=== PATIENT | female | born 2005 | race Caucasian/White ===

== ENCOUNTER 2025-10-07 08:13 | Observation (INO) | payer OTHER, SELFPAY ==
[2025-10-07] VITALS (8 sets, daily range): BP systolic 84–116; BP diastolic 47–78; PULSE 52–76; RESP 16–27; TEMP 36.4–37; O2SAT 96–100; BMI 26.2
--- NOTE | 2025-10-07 08:26 | ED_ITS ---
HPI - General Adult General Chief complaint: Skin/Abscess/Foreign Body Stated complaint: Cyst on left hip 7 days ago Time Seen by Provider: 10/07/25 08:23 History of Present Illness HPI narrative: 20-year-old woman with minimal medical history presents complaining of a labial/perirectal cyst. Initially noted pain increasing number for. Was seen in an urgent care clinic on October 02 given a small prescription for oxycodone and started on doxycycline. She is now visiting her family in [place] and notes that the pain continues to increase comes in for additional evaluation. No fevers or chills, no expanding redness or cellulitis Related Data Home Medications ?Medication ?Instructions ?Recorded ?Confirmed CA PANTOTHENATE/FOLIC ACID/VIT 1 tab PO QDAY ##0 07/20 (MULTIVITAMIN) Previous Rx's ?Medication ?Instructions ?Recorded lansoprazole 30 mg delayed 30 mg PO QDAY ##30 02/11/13 release,disintegrating tablet (Prevacid SoluTab) clindamycin HCl 150 mg capsule 150 mg PO TID #21 caps 10/07/25 oxycodone 5 mg tablet 5 mg PO Q6H PRN pain #10 tab s 10/07/25 Allergies Allergy/AdvReac Type Severity Reaction Status Date / Time ciprofloxacin (From Cipro) Allergy Severe Anaphylaxis Verified 10/07/25 08:23 hydrocodone AdvReac Verified 10/07/25 08:23 Review of Systems Review of Systems Narrative: Pertinent positive and negative findings as per HPI Exam Initial Vital Signs Initial Vital Signs: Vital Signs Temperature 97.5 F L 10/07/25 08:23 Pulse Rate 60 10/07/25 08:23 Respiratory Rate 16 10/07/25 08:23 Blood Pressure 116/61 10/07/25 08:23 Pulse Oximetry 99 10/07/25 08:23 Oxygen Delivery Method Room Air 10/07/25 08:23 General: Healthy appearing, in no acute distress. Able to give a complete and coherent history. Well-nourished well-developed Respiratory: Lungs are clear to auscultation, no wheezing no rales no rhonchi. Full and symmetrical air movement Cardiac: Regular rate and rhythm no murmurs no bruits Abdomen: Soft, nontender, no rebound or guarding, no flank pain Perineum: Increasing tenderness in the buttock/perianal area heading toward the perineum but not necessarily including the perineum and clearly not involving labia or Bartholin duct cyst area. There was no obvious skin breakdown, rash or erythema. It feels like there may be a deeper area of fluctuance approximately 2 x 2 cm. She is quite tender in that area Skin: Warm and dry, no rashes Neurologic: Grossly neurologically intact with no obvious asymmetries or abnormalities Extremities: No trauma, well perfused Psych: Cooperative, appropriate insight and affect Course Orders Ordered: ED Orders 10/07/25 12:38 EKG-12 Lead Stat Discontinued Medications Benzocaine (Benzocaine/Menthol 1 Yohana Pkt) 1 each PO PRN PRN PRN Reason: Sore Throat Hydromorphone HCl (Hydromorphone Hcl 0.5 Mg/0.5 Ml Syringe) 0.5 mg IV NOW ONE Stop: 10/07/25 10:13 Last Admin: 10/07/25 10:39 Dose: 0.5 mg Documented By: MACHO Hydromorphone HCl (Hydromorphone Hcl 0.5 Mg/0.5 Ml Syringe) 0.5 mg IV Q2H PRN PRN Reason: Pain, Severe (7-10) Last Admin: 10/07/25 13:06 Dose: 0.5 mg Documented By: LUIS Hydromorphone HCl (Hydromorphone 1 Mg/Ml Syringe) 0 mg IV Q5MIN PRN PRN Reason: Pain, Mild (1-3) Hydromorphone HCl (Hydromorphone 1 Mg/Ml Syringe) 0 mg IV Q5MIN PRN PRN Reason: Pain, Moderate (4-6) Hydromorphone HCl (Hydromorphone 1 Mg/Ml Syringe) 0 mg IV Q5MIN PRN PRN Reason: Pain, Severe (7-10) Sodium Chloride (Normal Saline 0.9%) 1,000 mls @ 125 mls/hr IV CONT PEMA Last Infusion: 10/07/25 13:34 Dose: 125 mls/hr Documented By: Admin: 10/07/25 13:07 Dose: 125 mls/hr Documented By: LUIS Piperacillin Sod/Tazobactam (Sod 4.5 gm/ Sodium Chloride) 100 mls @ 200 mls/hr IV NOW ONE Stop: 10/07/25 12:49 Last Infusion: 10/07/25 13:34 Dose: 200 mls/hr Documented By: Admin: 10/07/25 13:06 Dose: 200 mls/hr Documented By: LUIS Vancomycin HCl/Dextrose (Vancomycin) 1,500 mg in 300 mls @ 200 mls/hr IV NOW ONE Stop: 10/07/25 14:44 Lactated Ringer's (Lactated Ringers) 1,000 mls @ 120 mls/hr IV CONT PEMA Metoclopramide HCl (Metoclopramide 10 Mg/2 Ml Inj) 10 mg IV NOW PRN PRN Reason: Nausea And Vomiting Ondansetron HCl (Ondansetron 4 Mg/2 Ml Inj) 4 mg IV Q4HR PRN PRN Reason: Nausea And Vomiting Ondansetron HCl (Ondansetron 4 Mg/2 Ml Inj) 4 mg IV NOW PRN PRN Reason: Nausea And Vomiting Last Admin: 10/07/25 15:11 Dose: 4 mg Documented By: CHRISTIAN Oxycodone HCl (Oxycodone Ir 5 Mg Tablet) 5 mg PO PACUNOW PRN PRN Reason: Mild or moderate pain Vancomycin HCl (Vancomycin Per Pharmacy) 1 request MISC NOW ONE Stop: 10/07/25 12:50 Vital Signs Vital signs: Vital Signs - 8 hr 10/07/25 13:00 Temperature 98.6 F Pulse Rate 52 L Respiratory Rate 18 Blood Pressure 104/56 L Pulse Oximetry 99 Oxygen Delivery Method Room Air Medical Decision Making Lab Data 10/07/25 10:20 10/07/25 10:20 Labs: Lab Results 10/07/25 10/07/25 Range/Units 10:20 10:22 WBC 11.2 H (4.5-11.0) X10^3/uL RBC 4.57 (4.0-5.2) X10^6/uL Hgb 14.3 (12.0-16.0) g/dL Hct 42.1 (36-46) % MCV 92.1 (80-100) fL MCH 31.4 (26-34) PG MCHC 34.1 (30-36) % RDW 12.9 (11.6-14.8) % Plt Count 330 (150-400) X10^3/uL Neut % (Auto) 77.4 H (50-75) % Lymph % (Auto) 16.6 L (25-40) % [place] % (Auto) 5.1 (3-14) % Eos % (Auto) 0.3 L (2-4) % Baso % (Auto) 0.6 (0-2) % Neut # (Auto) 8700 H (0096-2572) /uL Lymph # (Auto) 1900 (3175-0357) /uL [place] # (Auto) 600 (0-900) /uL Eos # (Auto) 0 (0-450) /uL Baso # (Auto) 100 (0-100) /uL Sodium 140 (137-145) mmol/L Potassium 3.8 (3.4-5.1) mmol/L Chloride 106 (98-107) mmol/L Carbon Dioxide 20 L (22-32) mmol/L BUN 11 (7-17) mg/dL Creatinine 0.72 (0.52-1.04) mg/dL Estimated GFR > 60 (>60) mL/min BUN/Creatinine Ratio 15.3 (6-22) Glucose 81 (70-99) mg/dL Calcium 9.2 (8.4-10.2) mg/dL Total Bilirubin 0.8 (0.2-1.3) mg/dL AST 24 (14-36) IU/L ALT 16 (<35) IU/L Alkaline Phosphatase 70 (38-126) U/L Total Protein 8.3 H (6.3-8.2) g/dL Albumin 4.8 (3.5-5.0) g/dL Globulin 3.5 (1.7-4.1) g/dL Albumin/Globulin Ratio 1.4 (1.0-2.8) Urine RBC 10-30/hpf H (0-5/HPF) Urine WBC 5-10/hpf H (0-5/HPF) Ur Squamous Epith Cells 5-10 /hpf H (0-5/HPF) Urine Bacteria Moderate (10-30) H (None) Vol Urine Centrifuged 10ml (spun) Point of Care Testing Test Results Negative Urine Dip Bedside Urine Glucose 100 mg/dl Bedside Urine Bilirubin - Negative Bedside Urine Ketone +++ 80 Urine Specific [place] 1.030 Bedside Urine Occult Blood +++ Bedside Urine pH 6.0 Bedside Urine Protein +/- 15 Bedside Urine Urobilinogen - Negative Bedside Urine Nitrite - Negative Bedside Urine Leukocytes +/- 15 Esterase Point of care testing: Point of Care Testing Test Results Negative Urine Dip Bedside Urine Glucose 100 mg/dl Bedside Urine Bilirubin - Negative Bedside Urine Ketone +++ 80 Urine Specific [place] 1.030 Bedside Urine Occult Blood +++ Bedside Urine pH 6.0 Bedside Urine Protein +/- 15 Bedside Urine Urobilinogen - Negative Bedside Urine Nitrite - Negative Bedside Urine Leukocytes +/- [address] scan - abdomen/pelvis: Radiologist's Impression: PROCEDURE: CT ABDOMEN PELVIS W CON INDICATIONS: Left sided perirectal/perineal pain TECHNIQUE: After the administration of intravenous contrast, axial sections acquired from the lung bases to the pubic symphysis. Coronal and sagittal reformats were performed. For radiation dose reduction, the following was used: automated exposure control, adjustment of mA and/or kV according to patient size. COMPARISON: None. FINDINGS: Image quality: Diagnostic. Lower Chest: No significant findings. ABDOMEN: Liver: No solid mass. Gallbladder: No radiopaque gallstones or wall thickening. Biliary ducts: No biliary dilation. Pancreas: No ductal dilation. Spleen: Size is within normal limits. Adrenal Glands: No adrenal nodules. Kidneys and Ureters: No hydronephrosis. No solid mass. No complex renal cystic lesion which requires follow up. Stomach and Bowel: Normal colonic caliber, without significant wall thickening. Peritoneum: Mild pelvic fluid may be physiologic. No free air. Ventral Wall: No significant ventral hernia. Abdominal Nodes: No retroperitoneal or mesenteric adenopathy by size criteria. Vessels: Aorta and inferior vena cava are normal in size. PELVIS: Pelvic Organs: Unremarkable. Bladder: No bladder wall thickening, accounting for underdistention. Pelvic Nodes: No enlarged lymph nodes. Miscellaneous: No inguinal hernias are seen. There is a small high density focus in the left paramedian perianal subcutaneous tissues with a Hounsfield measurement of 79 which measures approximately 2.7 x 1.9 x 2.4 cm. Bones: No aggressive osseous abnormality. IMPRESSION: 1. Small area of hemorrhage versus enhancing phlegmon in the subcutaneous tissues of the medial left buttock near the anus. Dictated by: Julio C Bhardwaj M.D. on 10/07/2025 at 10:56 MDM Narrative Medical decision making narrative: CC: Concern for perineal abscess Data collected from: patient Medical records reviewed: She has been on doxycycline for the last 5 days with no improvement Differential considered: Bartholin duct cyst, perirectal abscess, cellulitis, Exam documented above, pertinent findings include: Tenderness in the left side of the perineum but not including the perineum. No obvious swelling or redness. This is not a Bartholin duct cyst Lab Test results independently reviewed as above. Pertinent findings: CBC shows a white count of 11.2 with normal left shift no anemia Chemistries are entirely reassuring Patient is currently menstruating, urine appears to be contaminated Imaging studies independently reviewed: IMPRESSION: 1. Small area of hemorrhage versus enhancing phlegmon in the subcutaneous tissues of the medial left buttock near the anus. Consultations: Dr Trevizo Treatments: IV antibiotics, IV Dilaudid Discussion: 20-year-old woman with perineal pain that appears to be a developing abscess possible perirectal abscess. She has been on 5 days of doxycycline with symptoms worsening. General surgery was consulted and patient will need to have this drained. It is quite deep and I do not believe treatment in the emergency department is going to be appropriate. She will be admitted to the general surgical service. Will begin antibiotics with Zosyn and vancomycin until cultures are obtained Discharge Plan Departure Patient Disposition: Admitted as Observation Clinical Impression: Abscess, perirectal Admit Date/Time: 10/07/25 13:27 Admit Provider: Naheed Trevizo
--- NOTE | 2025-10-07 10:11 | DI.CT.S_ITS ---
PROCEDURE: CT ABDOMEN PELVIS W CON INDICATIONS: Left sided perirectal/perineal pain TECHNIQUE: After the administration of intravenous contrast, axial sections acquired from the lung bases to the pubic symphysis. Coronal and sagittal reformats were performed. For radiation dose reduction, the following was used: automated exposure control, adjustment of mA and/or kV according to patient size. COMPARISON: None. FINDINGS: Image quality: Diagnostic. Lower Chest: No significant findings. ABDOMEN: Liver: No solid mass. Gallbladder: No radiopaque gallstones or wall thickening. Biliary ducts: No biliary dilation. Pancreas: No ductal dilation. Spleen: Size is within normal limits. Adrenal Glands: No adrenal nodules. Kidneys and Ureters: No hydronephrosis. No solid mass. No complex renal cystic lesion which requires follow up. Stomach and Bowel: Normal colonic caliber, without significant wall thickening. Peritoneum: Mild pelvic fluid may be physiologic. No free air. Ventral Wall: No significant ventral hernia. Abdominal Nodes: No retroperitoneal or mesenteric adenopathy by size criteria. Vessels: Aorta and inferior vena cava are normal in size. PELVIS: Pelvic Organs: Unremarkable. Bladder: No bladder wall thickening, accounting for underdistention. Pelvic Nodes: No enlarged lymph nodes. Miscellaneous: No inguinal hernias are seen. There is a small high density focus in the left paramedian perianal subcutaneous tissues with a Hounsfield measurement of 79 which measures approximately 2.7 x 1.9 x 2.4 cm. Bones: No aggressive osseous abnormality. IMPRESSION: 1. Small area of hemorrhage versus enhancing phlegmon in the subcutaneous tissues of the medial left buttock near the anus. Dictated by: Julio C Bhardwaj M.D. on 10/07/2025 at 10:56 Approved by: Julio C Bhardwaj M.D. on 10/07/2025 at 11:00
[2025-10-07 10:49] LABS: Add Manual Diff / Slide Review NO; Hematocrit 42.1 % (36-46); Hemoglobin 14.3 g/dL (12.0-16.0); Lymphocytes Absolute Auto 1900 /uL (1100-4500); Mean Corpuscular HGB Conc 34.1 % (30-36); Mean Corpuscular Hemoglobin 31.4 PG (26-34); Mean Corpuscular Volume 92.1 fL (80-100); Platelet Count 330 X10^3/uL (150-400)
[2025-10-07 11:06] LABS: Alanine Aminotransferase 16 IU/L (<35); Albumin 4.8 g/dL (3.5-5.0); Albumin Globulin Ratio 1.4 (1.0-2.8); Alkaline Phosphatase 70 U/L (38-126); Blood Urea Nitrogen 11 mg/dL (7-17); Calcium 9.2 mg/dL (8.4-10.2); Carbon Dioxide 20 mmol/L (22-32); Chloride 106 mmol/L (98-107); Estimated Glomerular Filt Rate > 60 mL/min (>60); Globulin 3.5 g/dL (1.7-4.1); Glucose 81 mg/dL (70-99); HEMOLYSIS < 15 (0-50); Potassium 3.8 mmol/L (3.4-5.1); Sodium 140 mmol/L (137-145); Total Protein 8.3 g/dL (6.3-8.2)
--- NOTE | 2025-10-07 12:32 | PM.HP.IH.1 ---
History of Present Illness History of Present Illness Date Patient Seen: 10/07/25 Time Patient Seen: 12:33 Chief complaint: Cyst on left hip 7 days ago Narrative: Called per Dr. Soto to see this 20-year-old female with a left perirectal abscess. Apparently the patient has had numerous perineal and labial abscesses, but this is the 1st time she has had a posterior abscess. She notes it has been an issue for at least 5 days and she is currently taking doxycycline to no advantage. CT reveals a significant abscess left of the anus measuring approximately 3 x 3 x 3 cm. Patient is exquisitely tender. She has remained afebrile. She is without additional complaints. She does note a history of SVT however, she states that since her 100 lb weight loss, it has no longer been an issue and she is no longer followed by cardiology. Meds Home Medications and Allergies Home Medications ?Medication ?Instructions ?Recorded ?Confirmed ?Type CA PANTOTHENATE/FOLIC ACID/VIT 1 tab PO QDAY ##0 07/20/11 History (MULTIVITAMIN) lansoprazole 30 mg delayed 30 mg PO QDAY ##30 02/11/13 Rx release,disintegrating tablet (Prevacid SoluTab) Allergies Allergy/AdvReac Type Severity Reaction Status Date / Time ciprofloxacin (From Cipro) Allergy Severe Anaphylaxis Verified 10/07/25 08:23 hydrocodone AdvReac Verified 10/07/25 08:23 Review of Systems Review of Systems ROS: Yes All systems reviewed with the patient and are negative except as otherwise documented Exam Vital Signs (past 8 hours): - 10/07/25 08:23 Temperature 97.5 F L Pulse Rate 60 Respiratory Rate 16 Blood Pressure 116/61 Pulse Oximetry 99 Oxygen Delivery Method Room Air Oxygen Delivery Method Room Air Narrative Exam Narrative: Afebrile; vital signs stable Atraumatic and normocephalic Good dentition, trachea midline Regular rate and rhythm without Respirations clear to auscultation bilaterally no wheezes rales or rhonchi Abdomen scaphoid, nontender, nondistended Perianal area with left deep, subcutaneous abscess adjacent to the perianal area; exquisitely tender; patient intolerant rectal exam Moves all extremities x4 Objective Labs 10/07/25 10:20 10/07/25 10:20 Labs: Laboratory Results - last 24 hr 10/07/25 10/07/25 10:20 10:22 WBC 11.2 H RBC 4.57 Hgb 14.3 Hct 42.1 MCV 92.1 MCH 31.4 MCHC 34.1 RDW 12.9 Plt Count 330 Neut % (Auto) 77.4 H Lymph % (Auto) 16.6 L [place] % (Auto) 5.1 Eos % (Auto) 0.3 L Baso % (Auto) 0.6 Neut # (Auto) 8700 H Lymph # (Auto) 1900 [place] # (Auto) 600 Eos # (Auto) 0 Baso # (Auto) 100 Sodium 140 Potassium 3.8 Chloride 106 Carbon Dioxide 20 L BUN 11 Creatinine 0.72 Estimated GFR > 60 BUN/Creatinine Ratio 15.3 Glucose 81 Calcium 9.2 Total Bilirubin 0.8 AST 24 ALT 16 Alkaline Phosphatase 70 Total Protein 8.3 H Albumin 4.8 Globulin 3.5 Albumin/Globulin Ratio 1.4 Urine RBC 10-30/hpf H Urine WBC 5-10/hpf H Ur Squamous Epith Cells 5-10 /hpf H Urine Bacteria Moderate (10-30) H Vol Urine Centrifuged 10ml (spun) Assessment & Plan Assessment & Plan narrative: 20-year-old female with large, perirectal abscess requiring operative intervention -patient currently NPO; we will initiate antimicrobials in the ER and admit -we will proceed to OR for I and D and culture -appreciate Dr. Geronimo for the opportunity to participate in this patient's care Time-Based Coding :: [TOTAL MINUTES] spent with patient and on the chart (including review of chart, obtaining history, exam, reviewing outside data, placing orders, documenting exam and treatment plan, and counseling patient) on [DATE]. PROFEE Chief Service Observer Document charge(s): No Charge Codes Initial inpatient/observation care: [id number]
--- NOTE | 2025-10-07 12:38 | EKG_ITS ---
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
[2025-10-07] MEDS: PIPERACILLIN/TAZO 4.5 GM in SODIUM CHLORIDE 0.9% 100 ML IV (13:06)
[2025-10-07] MEDS: SODIUM CHLORIDE 0.9% 1,000 ML 125 ML IV (13:07)
--- NOTE | 2025-10-07 13:33 | PC.NURSE ---
Pt being taken to the OR. report given to LAZARUS Raya. Pt transported from 1 with abx infusing
--- NOTE | 2025-10-07 14:27 | SUR.OPER ---
Lithotomy on padded OR bed, head on pillow, arms secured on padded arm boards at <90 degrees abduction. Legs secured in padded yellow fins stirrups.
--- NOTE | 2025-10-07 14:39 | PM.OP.1 ---
Operative Date/Time/Diagnoses Date of procedure: 10/07/25 Time of procedure: 14:39 Pre-op diagnosis: Left perirectal abscess Post-op diagnosis: same Procedure & Clinicians Procedure: Incision and drainage left perirectal abscess Same procedure(s) as scheduled: Yes Indications: Left perirectal abscess Surgeon: Naheed Trevizo Assisted?: No Anesthesia Type: General Operative Notes Findings: 4 x 4 cm deep left perirectal abscess; cultures for aerobic and anaerobic obtain Closure Type: not applicable Applied: none Estimated Blood Loss (mL): 25 Blood products transfused: none Procedure in detail: Following informed consent, the patient was taken to the operating room placed in supine position. An LMA was then placed. The patient was then placed in dorsal lithotomy and the perianal and perineal area prepped and draped in the standard fashion. Sharp dissection with a 11. Blade was used to create an incision over the area of greatest fluctuance. Purulent material was noted. Cultures were obtained and submitted for aerobic and anaerobic evaluation. Using a small hemostat the area was carefully explored. It was then irrigated. A small counter incision was made and a vessel loop passed through both incisions and tied off with silk suture in order to stent the wound open. The wound was then packed with 25 cm of half-inch Nu gauze saturated with Betadine and peroxide. The area was then infiltrated with 20 cc of 0.5% Marcaine with epinephrine. Sponge and needle counts were correct. A digital rectal exam was then performed. There did not appear to be any involvement along the left anus or rectal vault. The patient tolerated the procedure well. She was returned to the supine position extubated and a dressing was applied. She was taken to the recovery area in stable condition. Complications: none Post-operative Condition: stable Disposition: PACU Plan for aftercare: DC home; please see discharge detail
[2025-10-07] MEDS: ONDANSETRON 4 MG/2 ML INJ IV (15:11)
--- NOTE | 2025-10-08 08:03 | P.PN_ITS ---
Exam Vital Signs (past 8 hours): Oxygen Delivery Method Room Air Objective Labs 10/07/25 10:20 10/07/25 10:20 Labs: Laboratory Results - last 24 hr 10/07/25 10/07/25 10:20 10:22 WBC 11.2 H RBC 4.57 Hgb 14.3 Hct 42.1 MCV 92.1 MCH 31.4 MCHC 34.1 RDW 12.9 Plt Count 330 Neut % (Auto) 77.4 H Lymph % (Auto) 16.6 L [place] % (Auto) 5.1 Eos % (Auto) 0.3 L Baso % (Auto) 0.6 Neut # (Auto) 8700 H Lymph # (Auto) 1900 [place] # (Auto) 600 Eos # (Auto) 0 Baso # (Auto) 100 Sodium 140 Potassium 3.8 Chloride 106 Carbon Dioxide 20 L BUN 11 Creatinine 0.72 Estimated GFR > 60 BUN/Creatinine Ratio 15.3 Glucose 81 Calcium 9.2 Total Bilirubin 0.8 AST 24 ALT 16 Alkaline Phosphatase 70 Total Protein 8.3 H Albumin 4.8 Globulin 3.5 Albumin/Globulin Ratio 1.4 Urine RBC 10-30/hpf H Urine WBC 5-10/hpf H Ur Squamous Epith Cells 5-10 /hpf H Urine Bacteria Moderate (10-30) H Vol Urine Centrifuged 10ml (spun) Assessment & Plan Time-Based Coding :: [TOTAL MINUTES] spent with patient and on the chart (including review of chart, obtaining history, exam, reviewing outside data, placing orders, documenting exam and treatment plan, and counseling patient) on [DATE].
== END 2025-10-07 15:47 | disposition home or self-care (01) ==
LOC: ED 12:26 → AC 13:29
PROVIDERS: Admitting Provider Surgery Surgical Critical Care; Emergency Provider Emergency Medicine; Referring Provider Emergency Medicine; Visit Provider Surgery Surgical Critical Care
PROC: (CPT 46040; principal; 2025-10-07 14:00)
DX: K61.1 Rectal abscess (principal)
CPT/HCPCS: 46040; 74177; 80053; 81003; 81015; 81025; 85025; 87070; 87075; 87086; 87205; 93005; 96365; 96375; 96376; 99284; G0378; J1100; J1171; J1885; J2250; J2405; J2543; J2704; J3010; J7030; J7050

== ENCOUNTER 2025-10-10 01:31 | Emergency (ER) | payer OTHER, SELFPAY ==
[2025-10-10 01:46] VITALS: BP 111/68; PULSE 84; RESP 16; TEMP 37.2; O2SAT 98; BMI 26.2
--- NOTE | 2025-10-10 02:11 | ED_ITS ---
HPI - Nausea/Vomiting/Diarrhea General Chief complaint: Nausea/Vomiting/Diarrhea Stated complaint: Post op pain, N, V, fever Time Seen by Provider: 10/10/25 01:59 Source: patient Mode of arrival: Ambulatory History of Present Illness HPI Narrative: 20-year-old female had perirectal abscess initially treated with oral doxycycline that worsened, had surgical operating room drainage of perirectal abscess by surgeon Dr. Trevizo 3 days ago, discharged on clindamycin antibiotic, with oxycodone pain medication and Zofran ODT for control of nausea. Having nausea and vomiting, unable to keep pain medications down, increasing pain. Related Data Home Medications ?Medication ?Instructions ?Recorded ?Confirmed CA PANTOTHENATE/FOLIC ACID/VIT 1 tab PO QDAY ##0 07/20 (MULTIVITAMIN) Previous Rx's ?Medication ?Instructions ?Recorded lansoprazole 30 mg delayed 30 mg PO QDAY ##30 02/11/13 release,disintegrating tablet (Prevacid SoluTab) clindamycin HCl 150 mg capsule 150 mg PO TID #21 caps 10/07/25 oxycodone 5 mg tablet 5 mg PO Q6H PRN pain #10 tab s 10/07/25 metoclopramide HCl 10 mg tablet 10 mg PO Q6H PRN nause a and 10/10/25 (Reglan) vomiting #14 tabs Allergies Allergy/AdvReac Type Severity Reaction Status Date / Time ciprofloxacin (From Cipro) Allergy Severe Anaphylaxis Verified 10/07/25 08:23 hydrocodone AdvReac Verified 10/07/25 08:23 Patient History Social History Smoking Status: Current every day smoker Smoking Status: Current every day smoker Exam Narrative Exam Narrative: GENERAL: Well-developed patient, in mild distress. HEAD: Atraumatic. Normocephalic. EYES: White sclerae, conjugate gaze ENT: No obvious craniofacial trauma swelling, no redness NECK: Trachea midline. Moves neck well. CARDIOVASCULAR: Regular rate and rhythm without murmurs, gallops, or rubs. RESPIRATORY: Clear to auscultation. Breath sounds equal bilaterally. No wheezes, rales, or rhonchi. GASTROINTESTINAL: Abdomen soft, non-tender, nondistended. Perineal/rectal external exam: Tubing sutures intact, packing has been removed, no gross asymmetry, no significant swelling. EXTREMITIES: No edema or joint tenderness. BACK: Nontender without deformity or crepitance. No flank tenderness NEURO: AOx3. Motor functions grossly nonfocal. SKIN: No rash or erythema of visible areas Initial Vital Signs Initial Vital Signs: Vital Signs Temperature 99.0 F 10/10/25 01:46 Pulse Rate 84 10/10/25 01:46 Respiratory Rate 16 10/10/25 01:46 Blood Pressure 111/68 10/10/25 01:46 Pulse Oximetry 98 10/10/25 01:46 Oxygen Delivery Method Room Air 10/10/25 01:46 Course Orders Ordered: ED Orders 10/10/25 02:40 CBC Auto Diff [Complete Blood Count AUTO DIFF] Stat CMP [Comprehensive Metabolic Panel] Stat Lactate (Lactic Acid) Stat Urinalysis and Microscopic Stat Discontinued Medications Diphenhydramine HCl (Diphenhydramine 50 Mg/Ml Vial) 25 mg IV NOW ONE Stop: 10/10/25 02:17 Last Admin: 10/10/25 02:34 Dose: 25 mg Documented By: RODNEY Hydromorphone HCl (Hydromorphone Hcl 0.5 Mg/0.5 Ml Syringe) 0.5 mg IV NOW ONE Stop: 10/10/25 02:18 Last Admin: 10/10/25 02:35 Dose: 0.5 mg Documented By: RODNEY Sodium Chloride (Normal Saline 0.9%) 1,000 mls @ 1,000 mls/hr IV BOLUS ONE Stop: 10/10/25 03:15 Last Infusion: 10/10/25 03:15 Dose: Infused Documented By: Admin: 10/10/25 02:33 Dose: 1,000 mls/hr Documented By: RODNEY Ketorolac Tromethamine (Ketorolac 30 Mg/Ml Vial) 15 mg IV NOW ONE Stop: 10/10/25 03:00 Last Admin: 10/10/25 03:16 Dose: 15 mg Documented By: RODNEY Metoclopramide HCl (Metoclopramide 10 Mg/2 Ml Inj) 10 mg IV NOW ONE Stop: 10/10/25 02:17 Last Admin: 10/10/25 02:36 Dose: 10 mg Documented By: RODNEY Vital Signs Vital signs: Vital Signs - 8 hr 10/10/25 01:46 10/10/25 03:25 10/10/25 03:26 Temperature 99.0 F Pulse Rate 84 57 L Respiratory Rate 16 Blood Pressure 111/68 105/57 L Pulse Oximetry 98 97 Oxygen Delivery Method Room Air 10/10/25 03:26 Temperature Pulse Rate 61 Respiratory Rate Blood Pressure Pulse Oximetry 97 Oxygen Delivery Method MDM - Nausea/Vomiting/Diarrhea Lab Data Attestation: I reviewed the patient's lab results. Lab results narrative: White blood cell count 69981, hemoglobin 13.5, platelets adequate. Glucose 89, normal renal function, serum CO2, electrolytes. Liver functions normal. Urinalysis negative. 10/10/25 02:40 10/10/25 02:40 Labs: Lab Results 10/10/25 Range/Units 02:40 WBC 12.2 H (4.5-11.0) X10^3/uL RBC 4.31 (4.0-5.2) X10^6/uL Hgb 13.5 (12.0-16.0) g/dL Hct 39.7 (36-46) % MCV 92.0 (80-100) fL MCH 31.2 (26-34) PG MCHC 33.9 (30-36) % RDW 12.9 (11.6-14.8) % Plt Count 300 (150-400) X10^3/uL Neut % (Auto) 70.1 (50-75) % Lymph % (Auto) 21.7 L (25-40) % [place] % (Auto) 6.1 (3-14) % Eos % (Auto) 1.5 L (2-4) % Baso % (Auto) 0.6 (0-2) % Neut # (Auto) 8600 H (1289-4656) /uL Lymph # (Auto) 2600 (3417-5682) /uL [place] # (Auto) 700 (0-900) /uL Eos # (Auto) 200 (0-450) /uL Baso # (Auto) 100 (0-100) /uL Sodium 140 (137-145) mmol/L Potassium 3.6 (3.4-5.1) mmol/L Chloride 107 (98-107) mmol/L Carbon Dioxide 23 (22-32) mmol/L BUN 6 L (7-17) mg/dL Creatinine 0.68 (0.52-1.04) mg/dL Estimated GFR > 60 (>60) mL/min BUN/Creatinine Ratio 8.8 (6-22) Glucose 89 (70-99) mg/dL Lactate 0.9 (0.7-2.1) mmol/L Calcium 8.6 (8.4-10.2) mg/dL Total Bilirubin 0.4 (0.2-1.3) mg/dL AST 20 (14-36) IU/L ALT 14 (<35) IU/L Alkaline Phosphatase 56 (38-126) U/L Total Protein 7.3 (6.3-8.2) g/dL Albumin 4.2 (3.5-5.0) g/dL Globulin 3.1 (1.7-4.1) g/dL Albumin/Globulin Ratio 1.4 (1.0-2.8) Urine Color Yellow Urine Appearance Clear Urine pH 6.0 (4.5-8.0) Ur Specific [place] 1.010 (1.000-1.035) Urine Protein Negative (Negative) Urine Glucose (UA) Negative (Negative) g/dL Urine Ketones Negative (NEGATIVE) Urine Occult Blood 1+ H (Negative) Urine Nitrate Negative (Negative) Urine Bilirubin Negative (NEGATIVE) Urine Urobilinogen 0.2 (0.2) E.U./dL Ur Leukocyte Esterase Negative (NEGATIVE) Urine RBC 1-5/hpf D (0-5/HPF) Urine WBC None seen (0-5/HPF) Ur Squamous Epith Cells 0-1 /hpf (0-5/HPF) Urine Bacteria None seen (None) Ur Culture Indicated? Cult not indicated Vol Urine Centrifuged 10ml (spun) MDM Narrative Medical decision making narrative: 20-year-old female status post perirectal surgery drainage abscess in the operating room here, taking oral clindamycin and pain medication and ODT on Zofran, had postoperative nausea and vomiting unable to keep her medications down. Afebrile, sirs screen negative. On direct examination with certified genetic counselor nursing, surgical site without gross edema or redness. IV fluid, IV Dilaudid. Has been taking Zofran, wants alternate antinausea medication, IV Reglan/Benadryl. Lab data: White blood cell count 88225, hemoglobin 13.5, platelets adequate. Glucose 89, normal renal function, serum CO2, electrolytes. Liver functions normal. Urinalysis negative. Symptoms improved, pain better controlled, no longer feels nauseated. Requesting scopolamine patch that she has taken in the past, handwritten note script provided for 1 patch, with 1 refill. Also sent prescription for Reglan to use if needed for nausea control. Discharged home with family. Follow up with general surgery on Sunday as planned. Return precautions discussed. Discharge Plan Departure Patient Disposition: Home Clinical Impression: Nausea and vomiting, S/P stefany-rectal abscess repair, follow-up exam Activity Restrictions/Additional Instructions: Nausea and vomiting after recent perirectal abscess drainage procedure in the operating room. You had been prescribed clindamycin antibiotic after previous doxycycline antibiotic. You have pain medications and ODT Zofran, however you had persistent nausea and vomiting unable to keep medications down. IV fluids given, IV Reglan anti emetic antinausea medications. Prescription for oral Reglan to use if needed. Previous reported response to scopolamine, requests for prescription to use to help control nausea, also sent to your pharmacy. Recheck on Sunday with surgery Clinic as scheduled. Continue taking regular medications as prescribed. Prescriptions: New metoclopramide HCl [Reglan] 10 mg tablet 10 mg PO Q6H PRN (Reason: nausea and vomiting) Qty: 14 0RF No Action CA PANTOTHENATE/FOLIC ACID/VIT (MULTIVITAMIN) 1 tab PO QDAY Qty: 0 lansoprazole [Prevacid SoluTab] 30 MG tablet,disintegrat, delay rel 30 mg PO QDAY Qty: 30 1RF clindamycin HCl 150 mg capsule 150 mg PO TID Qty: 21 0RF oxycodone 5 mg tablet 5 mg PO Q6H PRN (Reason: pain) Qty: 10 0RF Stand Alone Forms: Patient Portal/API
[2025-10-10] MEDS: SODIUM CHLORIDE 0.9% 1,000 ML 1000 ML IV (02:33)
[2025-10-10] MEDS: diphenhydrAMINE 50 MG/ML VIAL 25 MG IV (02:34)
[2025-10-10] MEDS: METOCLOPRAMIDE 10 MG/2 ML INJ IV (02:36)
[2025-10-10 02:52] LABS: Appearance Urine UA CLEAR; Bilirubin Urine UA NEGATIVE (NEGATIVE); Color Urine UA YELLOW; Glucose Urine UA NEGATIVE (Negative); Ketones Urine UA NEGATIVE (NEGATIVE); Leukocyte Esterase Urine UA NEGATIVE (NEGATIVE); Nitrite Urine UA NEGATIVE (Negative); Occult Blood Urine UA 1+ (Negative); Protein Urine UA NEGATIVE (Negative); Specific Gravity Urine UA 1.010 (1.000-1.035); Urobilinogen Urine UA 0.2 E.U./dL (0.2)
[2025-10-10 02:56] LABS: Lactate (Lactic Acid) 0.9 mmol/L (0.7-2.1)
[2025-10-10 02:57] LABS: Alanine Aminotransferase 14 IU/L (<35); Albumin 4.2 g/dL (3.5-5.0); Albumin Globulin Ratio 1.4 (1.0-2.8); Alkaline Phosphatase 56 U/L (38-126); Blood Urea Nitrogen 6 mg/dL (7-17); Calcium 8.6 mg/dL (8.4-10.2); Carbon Dioxide 23 mmol/L (22-32); Chloride 107 mmol/L (98-107); Estimated Glomerular Filt Rate > 60 mL/min (>60); Globulin 3.1 g/dL (1.7-4.1); Glucose 89 mg/dL (70-99); HEMOLYSIS < 15 (0-50); Potassium 3.6 mmol/L (3.4-5.1); Sodium 140 mmol/L (137-145); Total Protein 7.3 g/dL (6.3-8.2)
[2025-10-10 02:58] LABS: Add Manual Diff / Slide Review NO; Hematocrit 39.7 % (36-46); Hemoglobin 13.5 g/dL (12.0-16.0); Lymphocytes Absolute Auto 2600 /uL (1100-4500); Mean Corpuscular HGB Conc 33.9 % (30-36); Mean Corpuscular Hemoglobin 31.2 PG (26-34); Mean Corpuscular Volume 92.0 fL (80-100); Platelet Count 300 X10^3/uL (150-400)
[2025-10-10 02:59] LABS: pH Urine UA 6.0 (4.5-8.0)
[2025-10-10] MEDS: KETOROLAC 30 MG/ML VIAL 15 MG IV (03:16)
[2025-10-10 03:25] VITALS: PULSE 57; O2SAT 97
[2025-10-10 03:26] VITALS: BP 105/57; PULSE 61; O2SAT 97
[2025-10-10 03:44] LABS: Culture Indicated Urine Cult Not Indicated
== END 2025-10-10 03:50 | disposition home or self-care (01) ==
PROVIDERS: Emergency Provider Emergency Medicine
DX: K61.1 Rectal abscess (principal); R11.2 Nausea with vomiting, unspecified; R50.9 Fever, unspecified; R19.7 Diarrhea, unspecified
CPT/HCPCS: 80053; 81001; 83605; 85025; 96360; 96374; 96375; 99283; 99284; J1171; J1200; J1885; J2765; J7030